=== PATIENT | female | born 1970 | race Caucasian/White ===

== ENCOUNTER 2018-02-03 12:15 | Inpatient (IN) ==
[2018-02-03] MEDS ORDERED: Albuterol 2.5 MG/3 ML NEBULIZER IH ONE (12:34)
[2018-02-03] MEDS ORDERED: CeFAZolin Syr 2,000MG/20 ML 2,000 MG/20 ML SYRINGE IVPB ONE (12:34)
[2018-02-03] MEDS ORDERED: Ringers Solution, Lactated 1,000 ML IVC SCH ×2 (12:45→17:04)
--- NOTE | 2018-02-03 13:00 | Anesthesia Evaluation PreOp ---
Date of Encounter: 02/03/18 Time of Encounter: 12:58 - Past History Planned Operation: R-TKR Cardiac History: Denies any Significant Hx, Other (Thoracic outlet syndrome) Pulmonary History: Smoker, Asthma CLUTCH OPERATOR History: Denies Any Significant HX Other Medical History: Other (Gout) Anesthesia History: No Prior Anesthetic Complications, Past Anesthesia (C- section x3, BTL, Cervical Conization vs. "freezing" off, R- knee scope, R-ACL reconsstruction, L-knee scope) Alcohol Use: none Drug use: none Medications and Allergies Albuterol Sulfate [Proair Hfa] 2 puff IH Q4H PRN 01/12/17 [History] Gabapentin [Neurontin] 300 mg PO TID 01/12/17 [History] hydrOXYzine HCl [Hydroxyzine HCl] 50 mg PO HS 01/12/17 [History] Ibuprofen [Motrin] 600 mg PO Q8HR #20 tab 03/10/17 [Rx] Lidocaine 4% CRM (LMX) [Lmx 4] 1 - 3 gm TD TID 02/03/18 [History] Omeprazole [PriLOSEC] 20 mg PO DAILY 02/03/18 [History] Sertraline [Zoloft] 25 mg PO DAILY 02/03/18 [History] 3 Allergy/AdvReac Type Severity Reaction Status Date / Time acetaminophen [From Vicodin] Allergy Vomiting Verified 05/07/17 12:25 hydrocodone [From Vicodin] Allergy Vomiting Verified 05/07/17 12:25 - Meds/Allergy Pre-op Review Medications Reviewed: Yes Allergies Reviewed: Yes Beta Blockers on Current Med List: No Anesthesia Results - Labs Laboratory Tests 01/27/18 01/27/18 01/27/18 16:07 16:07 16:07 WBC Hgb Hct PT 10.9 INR 1.0 APTT 32.6 Sodium 136 Potassium 3.9 Chloride 105 Carbon Dioxide 25 BUN 8 Est GFR (Non-Af Amer) > 60 Serum , Qual Negative 01/27/18 16:07 WBC 9.2 Hgb 15.6 H Hct 44.9 PT INR APTT Sodium Potassium Chloride Carbon Dioxide BUN Est GFR (Non-Af Amer) Serum , Qual Anesthesia Exam O2 Sat Height 1.7 m Weight 108.863 kg Height: 5'7" Weight: 240# BMI = 38 NPO (# of Hours): MNOc Pain Scale Used: Numeric (1 - 10) - HEENT Pupil (Motor): Pupils equal, EOMI Mallampati: II Teeth: Normal Oral Opening: Greater than 3 - CLUTCH OPERATOR LOC: Oriented CLUTCH OPERATOR Motor: Normal RUE, Normal LUE, Normal RLE, Normal LLE, Normal Face CLUTCH OPERATOR Sensory: Normal: RUE, LUE, RLE, LLE, Face - Cardiac Rhythm: Regular Murmur: None - Pulmonary Breath Sounds: bilateral Clear Respiratory Effort: Symmetrical Anesthesia Assess/Plan ASA Score: 3 (BECKI, Smoker, Obesity) Modified Arnold Scale for Level of Consciousness: Cooperative, oriented, and tranquil Anesthetic Plan: Regional (SAB + Femoral PNB), MAC Monitoring Plan: Standard Monitors Recovery Plan: PACU Anes Supervising Prov Stmt: Pt seen/evaluated, R&B Discussed, questions answered and consent obtained. Jaylen Newton MD
--- NOTE | 2018-02-03 13:20 | History & Physical Report ---
Date of Encounter: 02/03/18 Time of Encounter: 13:20 24 Hour HP Update - Instructions Instructions: If the History and Physical is less than 30 days old and was completed prior to A.M. admission and or procedure and has NOT been updated on calendar day of procedure please complete this update prior to performing procedure. - Update Patient reports changes in Medical Condition: No Changes in examination, assessment, or condition: No Changes in Medication: No Preop tests/diagnostics Reviewed: Yes Surgery Remains Indicated: Yes Consent for Planned Operative Procedure(s) Verified: Yes - Pre-Operative Checklist Preoperative Checklist Indicated: No Prophylactic Antibiotic Ordered: Yes Is VTE Prophylaxis Indicated?: Yes
--- NOTE | 2018-02-03 13:23 | Discharge Summary ---
<Lionel Kendrick Onel - Last Filed: 02/03/18 13:39> Date of Encounter: 02/03/18 - Discharge Diagnosis (1) Asthma Priority: Secondary Status: Chronic Qualifiers: Asthma severity: unspecified severity Asthma persistence: unspecified Asthma complication type: unspecified Qualified Code(s): J45.909 - Unspecified asthma, uncomplicated (2) Tobacco abuse Priority: Secondary Status: Chronic (3) Arthritis of right knee Priority: Primary Status: Chronic (4) Status post total knee replacement, right Priority: Primary Status: Acute - Hospital Course Hospital course: Ms. Hayes is a 47 year old female - Time Spent with Patient Total time spent providing and/or coordinating discharge services: - Discharge Medications Home Medications: Gabapentin [Neurontin] 300 mg PO TID 01/12/17 [History] hydrOXYzine HCl [Hydroxyzine HCl] 100 mg PO HS 01/12/17 [History] Aspirin Enteric Coated [Aspirin EC] 325 mg PO BID #20 tablet. 02/03/18 [Rx] Lidocaine 4% CRM (LMX) [Lmx 4] 1 - 3 gm TD TID 02/03/18 [History] Omeprazole [PriLOSEC] 20 mg PO DAILY 02/03/18 [History] OxyCODONE Immed Rel [Roxicodone 5 MG] 5 mg PO Q4HR PRN 5 Days #20 tablet [Rx] Sertraline [Zoloft] 75 mg PO DAILY 02/03/18 [History] Allergies/Adverse Reactions: 3 Allergy/AdvReac Type Severity Reaction Status Date / Time acetaminophen [From Vicodin] Allergy Vomiting Verified 05/07/17 12:25 hydrocodone [From Vicodin] Allergy Vomiting Verified 05/07/17 12:25 Primary care physician: Wilber Gaines DO - Patient Status Disposition: Transfer SNF Condition: Good - Discharge Instructions Follow Up With: Wilber Solorio DO [Primary Care Provider] - Additional Instructions: Discharge Instructions: Total Knee Replacement Please call [facility] ([phone]), your Primary Care Physician, or report to the Emergency Room if you have any of the following symptoms: Nausea, vomiting, fever greater that 101.5, swelling, chest pain, shortness of breath, increased pain/redness/drainage/odor for your incision site, numbness/ tingling, or any other concerning symptoms. ACTIVITY:Weight-bearing as tolerated. You may progress off support (crutches or walker) as tolerated. Incentive Spirometer 10 times an hour. MEDICATIONS: Upon discharge resume your home medications. Take all the medications as prescribed. Take a stool softener if taking narcotic pain medications. Stool softeners are only effective if you drink enough fluids. Drink 6-8 glass of water or fluids a day, unless this is not allowed for another health problem. Despite using stool softeners, if you haven't had a bowel movement in 3 days, please switch to a gentle laxative. Gentle laxatives are sold over the counter. You should have a bowel movement within 24 hours, if not call the office. You will be discharged from the hospital with a prescription for pain medication. You are encouraged to decrease the use of narcotic pain medication as tolerated. Should you require a refill, please call the office. [facility] prescribes narcotic pain medication for only 4-6 weeks after surgery. If you require pain medication beyond this time period, you may be referred to your Primary Care Physician or to the Pain Clinic for further evaluation. Plan ahead for refills on pain medication as many narcotics either need to be picked up at the office or mailed. It is best to call 48-72 hours in advance of needing a prescription refill so you don't run out of medication. To help control the post-operative pain, you may take NSAIDs (Aleve,Advil, Motrin, Ibuprofen, Naprosyn) or Tylenol as prescribed on the bottle in addition to the pain medication. ANTICOAGULATION (blood thinners): Continue your Aspirin, Lovenox or Coumadin as prescribed to help prevent a blood clot in the leg or in the lungs. As long as your incision remains dry and you tolerate the NSAIDs (Aleve, Advil, Motrin, ibuprofen, naprosyn), it is OK to use the NSAIDS while you are taking your anticoagulation medication. Should your incision start to drain, stop the NSAID and contact our office. Common symptoms of blood clot in the legs include: localized pain, swelling, calf tenderness, redness or discoloration of the skin. Blood clot in the lung symptoms include: shortness of breath, rapid pulse, sweating, and chest pain that worsens with deep breathing, coughing up blood, lightheadedness, feelings of anxiety. If you experience any of these symptoms notify your physician immediately, go to the emergency room, or if having trouble breathing, call 911. WOUND CARE: Leave the dressing on for 7 to 10days. You may change the dressing if it becomes saturated greater than 50%. Do not get the dressing wet at anytime. Wash your hands with antibacterial soap, rinse and dry prior to any wound care. If you have yvonne the visiting nurse or rehab facility can remove the stapes 10-14 days after surgery and place steri-strips across the wound. Leave the steri-strips in place until they fall off on their won. You may let water from the shower run on top of the steri-strips. If you do not have a visiting nurse or rehab facility, you will need to return to the office at 10-14 days for the yvonne to be removed. If you have itching or redness around the dressing call the office. FOLLOW-UP: Please follow up with your surgeon in the orthopedic clinic in 4 weeks from the day of surgery. If you have yvonne that need to be removed, you will need to come back to the office in 10-14 days from the day of surgery. <Debby Jordan - Last Filed: 02/06/18 11:11> Orders not resulted at time of discharge: Pending orders 02/03/18 15:33 Surgical Pathology [PTH] Routine Date of Encounter: 02/06/18 Time of Encounter: 11:09 - Discharge Diagnosis (1) Status post total knee replacement, right Priority: Primary Status: Acute Comments: Opsite dressing and Zipline dressing placed, leave intact until first post- operative visit. If dressing becomes >50% saturated, contact office, remove dressing and place appropriate dressing in its place. Do not allow for dressing to get wet. Yvonne/Zipline dressing in place, plan to remove at POD#14-16. PT: Total Joint Precautions x 6 weeks Apply ICE/cold therapy wrap 3-6x/day for 20 minutes at a time. Encourage ambulation throughout the day and incentive spirometer 10x/hour. Elevate affected extremity above heart as tolerated. Brace: Knee immobilizer at night until first post-operative appointment. (2) Arthritis of right knee Priority: Primary Status: Chronic (3) Asthma Status: Chronic Qualifiers: Asthma severity: unspecified severity Asthma persistence: unspecified Asthma complication type: unspecified Qualified Code(s): J45.909 - Unspecified asthma, uncomplicated (4) Tobacco abuse Status: Chronic - Hospital Course Hospital course: Ms. Hayes is a 47 year old female, s/p TKR. Patient had unevenful post- operative course. Vital Signs Temp Pulse Resp BP Pulse Ox 02/06/18 07:09 98.5 F 74 16 110/72 96 02/06/18 01:17 98.5 F 74 16 152/98 95 02/05/18 18:28 98.2 F 72 18 146/85 97 02/05/18 15:41 98.0 F 75 18 114/75 96 02/05/18 11:54 98.6 F 73 18 153/86 96 Intake and Output 02/05/18 02/06/18 02/06/18 23:59 07:59 15:59 Intake Total 240 / 240 Balance 240 / 240 Intake: Oral 240 / 240 Other: Meal Breakfast Percent of Meal Consumed 50% # Voids 1 1 1 Intake & Output 02/03/18 02/04/18 02/05/18 02/06/18 23:59 23:59 23:59 23:59 Intake Total 50 / 50 200 / 200 200 / 200 240 / 240 Output Total 500 / 500 100 / 100 Balance -450 / -450 100 / 100 200 / 200 240 / 240 Weight 108.863 kg Abnormal Labs 02/03/18 02/04/18 02/05/18 16:17 00:19 00:34 Hgb 11.3 L D Hct 45.2 H 33.8 L Sodium 134 L Glucose 159 H Calcium 02/05/18 00:34 Hgb Hct Sodium Glucose 129 H Calcium 8.5 L - Time Spent with Patient Total time spent providing and/or coordinating discharge services: Date of admission: 02/03/18 17:31 Primary care physician: Wilber Gaines DO Consults: 02/03/18 17:04 Consult to Orthopedic Navigator [CONS] [CONS] Routine Consult to Physical Therapy [CONS] Routine Comment: Evaluate, develop and impliment POC Reason for Consult: post knee surgery Does patient have active BEDREST order?: No Is patient medically & hemodynamically stable?: Yes Consult to Router Machine Operator [CONS] Routine Reason for SW Consult: post op joint replacement RT Post Op Consult [CONS] Routine 02/03/18 17:24 Consult to Nutrition [CONS] Routine Comment: Consulting Provider: NUTRITION Reason for Dietary Consult: MST Score Consult to Pastoral Services [CONS] Routine Comment: Anticipated date of discharge: 02/06/18 - Impressions ITS Impressions Knee X-Ray 02/03/18 13:23 IMPRESSION: Total knee arthropasty without acute hardware complication. D/ / Gabriel Nieves MD / Gabriel Nieves MD Interpreting Provider: Gabriel Nieves MD - Patient Status Functional capacity at discharge: uses cane/walker Overall status at discharge: patient is back to baseline
[2018-02-03] MEDS ORDERED: *HR* FentaNYL (PF) 100 MCG/2 ML VIAL ONE ×2 (13:33→13:40)
[2018-02-03] MEDS ORDERED: *HR* Morphine Sulfate/PF 10 MG/10 ML AMPUL ONE (13:33)
[2018-02-03] MEDS ORDERED: Bupivacaine/Clonidine Syringe 1 EACH SYRINGE ONE (13:34)
[2018-02-03] MEDS ORDERED: ROPIVACAINE HCL/PF 0.5% 30 ML VIAL ONE (13:34)
[2018-02-03] MEDS ORDERED: Tetracaine/PF 20 MG/2 ML AMPUL ONE (13:35)
[2018-02-03] MEDS ORDERED: Acetaminophen IV 1,000 MG/100 ML INFUS..BTL IVPB ONE (13:40)
[2018-02-03] MEDS ORDERED: *HR* Midazolam HCl 2 MG/2 ML VIAL ONE (13:40)
[2018-02-03] MEDS ORDERED: Ethanol\\Acetic Acid\\Na Ace\\Ben 1,000 ML IRRIG.SOLN IR ONE (13:53)
[2018-02-03] MEDS ORDERED: *HR* PHENYLEPHRINE 1,000 MCG/10 ML SYRINGE IVP ONE (14:39)
[2018-02-03] MEDS ORDERED: Propofol 500 MG/50 ML INFUS..BTL ONE (14:40)
[2018-02-03] MEDS ORDERED: Ondansetron 4 MG/2 ML VIAL ONE (14:46)
[2018-02-03] MEDS ORDERED: Dexamethasone 4 MG/ML VIAL ONE (14:46)
--- NOTE | 2018-02-03 14:46 | Anesthesia Procedures ---
Date of Encounter: 02/03/18 Time of Encounter: 14:01 Procedures: Anesthesia - Nerve Block Procedure Date: 02/03/18 Time: 14:01 Allergies/Adv Reactions: VICODIN Pre-op Diagnosis: RIGHT TOTAL KNEE ROBOTIC Surgical Procedure: RIGHT TOTAL KNEE ROBOTIC Checklist: Correct Patient Identifier, Correct procedure, History checked Correct side: Right Blood Thinner: No Monitor Applied: EKG, BP, Pulse Oximetry Supplemental Oxygen via Nasal Cannula (L/min): 2 Sedation: Versed (mg): 2 Sedation: Fentanyl (mcg): 100 Indication: Post Op Analgesia Pre-op Neuro Deficits: No Block Type: Femoral (IPACK ), Other (SPINAL ) Catheter placed: No Sterile Technique: Yes Ultrasound used: Yes Anatomy identified: Yes Visual spread of Local: Yes Neuro Stimulation: Yes Nerve Stimulator Range: 0.2 - 0.4 mA Blood on Needle Aspiration: No Smooth Injection of Local: Yes Pain with Injection of Local: No Prep: Chlorhexadine Needle: 21 x 100 mm Stimuplex Local: Ropivacaine (8MG DECADRON ROPI 0.5% WITH 1% TETRACAINE ), Other (SPINAL : BUPIV 0.5% 2ML WITH 200MCG DURAMORPH ) Volume (cc): 50 Number of Attempts: 1 Complications: None/effective block (1) Vitals: Vital Signs - Last 8 Hours Temp Pulse Resp BP Pulse Ox 02/03/18 14:27 70 16 122/78 98 02/03/18 14:24 67 16 122/75 98 02/03/18 14:21 69 16 131/75 98 02/03/18 14:18 76 16 135/81 96 02/03/18 14:15 72 16 125/68 97 02/03/18 14:12 70 16 128/76 96 02/03/18 14:09 74 16 130/73 97 02/03/18 14:06 90 16 139/113 90 02/03/18 14:03 81 16 124/57 97 02/03/18 14:00 79 16 138/86 96 02/03/18 12:40 98.5 F 78 18 142/78 95 Intake and Output 02/02/18 02/03/18 02/03/18 23:59 07:59 15:59 Other: Weight 108.863 kg Patient Weight 02/03/18 23:59 Weight 108.863 kg Comments: PER COTTRELL REQUEST
[2018-02-03] MEDS ORDERED: Ketorolac 30 MG/ML VIAL ONE (14:48)
--- NOTE | 2018-02-03 14:48 | Anesthesia Procedures ---
<Debbie Bakeree - Last Filed: 02/03/18 14:47> Date of Encounter: 02/03/18 Time of Encounter: 14:01 Procedures: Anesthesia - Epidural/Spinal Patient ID/Chart reviewed: Yes Patient examined: Yes Consent Obtained: Yes Supplemental Oxygen: Nasal Cannula Supplemental Oxygen Rate (L/min): 2 Sedation: Versed (mg): 2 Sedation: Fentanyl (mcg): 100 Site Prep: Aseptic Technique, Sterile prep and drape, Povidone-Iodine 1% Patient position: upright Local Anesthetic: Lidocaine 1% Interspace Used: L4-L5 Blood: No CSF: Yes (SPINAL ) Paresthesia: No Spinal Needle Gauge: 22 Spinal Dose: BUPIV 0.5% 2ml with 200mcg duramorph Vitals + FHT's: Vital Signs - Last 8 Hours Temp Pulse Resp BP Pulse Ox 02/03/18 14:27 70 16 122/78 98 02/03/18 14:24 67 16 122/75 98 02/03/18 14:21 69 16 131/75 98 02/03/18 14:18 76 16 135/81 96 02/03/18 14:15 72 16 125/68 97 02/03/18 14:12 70 16 128/76 96 02/03/18 14:09 74 16 130/73 97 02/03/18 14:06 90 16 139/113 90 02/03/18 14:03 81 16 124/57 97 02/03/18 14:00 79 16 138/86 96 02/03/18 12:40 98.5 F 78 18 142/78 95 Intake and Output 02/02/18 02/03/18 02/03/18 23:59 07:59 15:59 Other: Weight 108.863 kg Patient Weight 02/03/18 23:59 Weight 108.863 kg <Nabeel Swann - Last Filed: 02/03/18 15:12> Date of Encounter: 02/03/18 Procedures: Anesthesia - Epidural/Spinal Site Prep: 0.5% Chlorhexidine/Alcohol Amount of Local Anesthetic used: 2
[2018-02-03] MEDS ORDERED: *HR* Propofol 200 MG/20 ML VIAL IVP ONE (15:20)
[2018-02-03] MEDS ORDERED: *HR* Promethazine 25 MG/ML VIAL IVP PRN (15:41)
--- NOTE | 2018-02-03 15:57 | Orthopedic Operative Note ---
Date of procedure: 02/03/18 Pre-op diagnosis: right knee arthritis Post-op diagnosis: same Procedure: Procedure: Right robotic-assisted Total knee replacement Estimated blood loss: 200 cc Hardware: Metal and polyethylene replacement. [place] Femur: 4 Tibia: 4 PS insert: 16 Patella: 36 Exam Under anesthesia: 6 degree hyperextension 0 degree varus valgus as calculated by the robot full flexion and no instability Procedural Notes: Grade 4 arthritic changes all 3 compartments Operative procedure: The patient was brought to the operating room and placed on the operating room table. After general anesthesia was administered the operative knee was examined. Findings were noted in the exam under anesthesia. The operative extremity was prepped and draped in sterile surgical fashion. The patient received IV antibiotics prior to skin incision. A standard midline incision was made centered over the patella. The incision was made through the skin and subcutaneous tissue. A medial parapatellar tendon approach was performed. Care was taken to preserve tissue along the medial aspect of the patella. And to protect the patella tendon. The deep MCL was released off the medial tibia. The infra patella fat pad was excised. The patella was everted and cut was made at the level of the insertion of the quadriceps and patella tendon. The patella was sized to 36 the guide was seated and the lug holes are drilled. Knee was brought into flexion. Patient noted to have Steinmann pins were placed in the tibia and the femur for the tibial and femoral arrays respectively. Checkpoints were also placed in the tibia and the femur for calculation purposes. The knee including the femur and the tibial registered. Osteophytes, ACL and PCL were excised at this point. Extension and flexion were assessed with a valgus stress components were adjusted on the computer to balance the knee. Femoral cuts were made first with robotic assistance, these included the anterior cut posterior cuts chamfer cuts. Tibial cut was then performed with robotic assistance as well. Bone fragments were removed, as well as the medial and lateral meniscus. The size 4 femoral guide was seated box cut was made lug holes are drilled. The size 4 tibial tray was seated and prepared with the fin cutter. Trial reduction with the 16 TS Tiff revealed extension of 0 degree and 0 degree varus valgus full flexion. No varus valgus instability. Trial reduction revealed excellent patella tracking. All trial components were removed all bony surfaces were irrigated. The Tibia was seated followed by the femur, The Tiff size 16 was seated and secured patella. Patient had similar findings for motion and stability. The knee was then irrigated out with 2 L of pulse irrigation. The extensor mechanism was closed with #2 FiberWire suture and #2 PDS suture. The subcutaneous tissue was then irrigated and closed deep with #1 PDS suture superficially with 0 PDS suture and skin was closed with irina zip tie The patient was then placed in a sterile dressing and a postoperative brace extubated and transferred to recovery room in stable condition. Anesthesia: spinal Surgeon: Lionel Kendrick Was there an wardrobe assistant present: No Estimated blood loss (cc): 200 Condition: stable Disposition: PACU
[2018-02-03] MEDS ORDERED: Temazepam 15 MG CAPSULE PO PRN (17:04)
[2018-02-03] MEDS ORDERED: Sennosides 8.6 MG TABLET PO PRN (17:04)
[2018-02-03] MEDS ORDERED: *HR* OxyCODONE/APAP 5/325 TABLET PO PRN (17:04)
[2018-02-03] MEDS ORDERED: Naloxone 0.4 MG/ML INJ IVP PRN (17:04)
[2018-02-03] MEDS ORDERED: Ondansetron 4 MG/2 ML VIAL IVP PRN (17:04)
[2018-02-03] MEDS ORDERED: MOM Conc 10 ML UD.LIQ PO PRN (17:04)
[2018-02-03] MEDS ORDERED: traMADol 50 MG TABLET PO PRN (17:04)
[2018-02-03 17:52] LABS: Hematocrit 45.2 % (35.3-44.9); Hemoglobin 15.2 g/dL (11.5-15.4)
[2018-02-03] MEDS ORDERED: *HR* Enoxaparin 30 MG/0.3 ML SYRINGE SQ SCH (18:00)
--- NOTE | 2018-02-03 18:23 | Anesthesia Evaluation Post Op ---
Date of Encounter: 02/03/18 Time of Encounter: 16:40 - Vital Signs Vital Signs: Vital Signs/O2 Sat/Glucose, Most Current Temp Pulse Resp BP Pulse Ox 02/03/18 16:50 97.9 F 56 16 121/71 96 02/03/18 16:35 97.2 F L 64 16 135/72 97 02/03/18 16:25 97.2 F L 61 16 133/75 98 02/03/18 16:15 54 14 124/68 97 02/03/18 16:05 60 16 115/68 97 02/03/18 15:55 97.2 F L 70 16 113/70 98 02/03/18 14:27 70 16 122/78 98 02/03/18 14:24 67 16 122/75 98 - Lungs Lungs: Clear Ascult./Percussion - Airway Airway: Non-obstructed - Cardiovascular Regular Rate - Mental Status Mental Status: Alert & Oriented, Answers Appropriately - Pain Pain Scale: 0 Pain Scale used: Numeric (1 - 10) - Nausea Vomiting Nausea Vomiting: Not Present - Hydration Hydration: Tolerates oral liquids, Has not voided - Discharge PostOp Status: Transfer Patient to floor Anes Supervising Prov Stmt: Pt VSS And has met criteria for discharge to floor. - MD Aman
[2018-02-03] MEDS: Gabapentin 300 MG CAPSULE PO SCH ×2 (19:31→20:00)
--- NOTE | 2018-02-03 19:37 | Physician Discharge Referral ---
<Christiana Scruggs - Last Filed: 02/03/18 19:36> Home Health/Hosp Referral Info Transfer to: Home Health Attending Provider: farideh - Diagnosis (1) Status post total knee replacement, right Priority: Primary Status: Acute (2) Arthritis of right knee Priority: Secondary Status: Chronic (3) Asthma Priority: Secondary Status: Chronic (4) Tobacco abuse Priority: Secondary Status: Chronic - Respiratory Orders Smoking Cessation: Smoking cessation has been advised. For more information, call the [place] Tobacco Quit Line at 6-372-YDMK-NOW. - Diet/Nutrition Diet/Nutrition Orders: Regular - Activity Activity Orders: Ambulate, Chair - Services Needed Following services are medically necessary services: Physical Therapy, Occupational Therapy Home Care Orders: Opsite dressing, leave intact until first post-operative visit. If dressing becomes >50% saturated, contact office, remove dressing and place appropriate dressing in its place. Do not allow for dressing to get wet. Zipline/Yvonne in place, plan to remove at post-operative day #14-16. Total Joint Precautions x 6 weeks Apply cold therapy wrap 3-6x/day for 20 minutes at a time. Encourage ambulation throughout the day Use Incentive spirometer 10x/hour. Elevate affected extremity above heart as tolerated. Brace: Wear knee immobilizer at night x 2 weeks. - Transfer Medications Home Medications: Gabapentin [Neurontin] 300 mg PO TID 01/12/17 [History] hydrOXYzine HCl [Hydroxyzine HCl] 100 mg PO HS 01/12/17 [History] Aspirin Enteric Coated [Aspirin EC] 325 mg PO BID #20 tablet. 02/03/18 [Rx] Lidocaine 4% CRM (LMX) [Lmx 4] 1 - 3 gm TD TID 02/03/18 [History] Omeprazole [PriLOSEC] 20 mg PO DAILY 02/03/18 [History] OxyCODONE Immed Rel [Roxicodone 5 MG] 5 mg PO Q4HR PRN 5 Days #20 tablet [Rx] Sertraline [Zoloft] 75 mg PO DAILY 02/03/18 [History] Allergies/Adverse Reactions: 3 Allergy/AdvReac Type Severity Reaction Status Date / Time acetaminophen [From Vicodin] Allergy Vomiting Verified 05/07/17 12:25 hydrocodone [From Vicodin] Allergy Vomiting Verified 05/07/17 12:25 Certification: Further, I certify that my clinical findings support that this patient is homebound (i.e. absences from home require considerable and taxing effort and are for medical reasons or restorationist services or infrequently or short duration when for other reasons) because: Homebound Reason: Post-surgery restriction and or conditions limit ability to leave home Attestation: My signature below is to certify that this patient is under my care and that I, or nurse practitioner, or a physician assistant store manager trainee working with me, has a face-to- face encounter with this patient. <Lionel Kendrick - Last Filed: 02/06/18 06:49> - Diagnosis (1) Asthma Status: Chronic (2) Tobacco abuse Status: Chronic (3) Arthritis of right knee Status: Chronic (4) Status post total knee replacement, right Status: Acute - Respiratory Orders Smoking Cessation: Smoking cessation has been advised. For more information, call the [place] Tobacco Quit Line at 3-898-INFN-NOW. Certification: Further, I certify that my clinical findings support that this patient is homebound (i.e. absences from home require considerable and taxing effort and are for medical reasons or restorationist services or infrequently or short duration when for other reasons) because: Attestation: My signature below is to certify that this patient is under my care and that I, or nurse practitioner, or a physician's assistant store manager trainee working with me, has a face-to -face encounter with this patient.
--- NOTE | 2018-02-03 19:38 | Physician Discharge Referral ---
<Christiana Scruggs - Last Filed: 02/03/18 19:37> ExtendedCare Referral Info Transfer To: [facility] Provider in Charge: Aroldo York Diagnosis (1) Status post total knee replacement, right Priority: Primary Status: Acute (2) Arthritis of right knee Priority: Secondary Status: Chronic (3) Asthma Priority: Secondary Status: Chronic (4) Tobacco abuse Priority: Secondary Status: Chronic Expected Duration of Placement: <30 days Prognosis: Good Aware of Diagnosis: Patient Aware of Prognosis: Patient - Transfer Medications Home Medications: Gabapentin [Neurontin] 300 mg PO TID 01/12/17 [History] hydrOXYzine HCl [Hydroxyzine HCl] 100 mg PO HS 01/12/17 [History] Aspirin Enteric Coated [Aspirin EC] 325 mg PO BID #20 tablet. 02/03/18 [Rx] Lidocaine 4% CRM (LMX) [Lmx 4] 1 - 3 gm TD TID 02/03/18 [History] Omeprazole [PriLOSEC] 20 mg PO DAILY 02/03/18 [History] OxyCODONE Immed Rel [Roxicodone 5 MG] 5 mg PO Q4HR PRN 5 Days #20 tablet [Rx] Sertraline [Zoloft] 75 mg PO DAILY 02/03/18 [History] Allergies/Adverse Reactions: 3 Allergy/AdvReac Type Severity Reaction Status Date / Time acetaminophen [From Vicodin] Allergy Vomiting Verified 05/07/17 12:25 hydrocodone [From Vicodin] Allergy Vomiting Verified 05/07/17 12:25 - Respiratory Orders Smoking Cessation: Smoking cessation has been advised. For more information, call the [place] Tobacco Quit Line at 4-533-APYF-NOW. - Ancillary Orders May use pressure relief devices daily prn, May go on MADDIE w/family/respon libertarian w /meds at nurse discretion PRN, May consult with Dentist, Visual Merchandising Specialist, Ergonomics Consultant PRN - Mobility Orders Chair, Ambulate - Rehabiliation Orders Rehab Potential: Good Rehab Orders: Evaluation for Physical Therapy, Evaluation for Occupational Therapy - Treatments List/Other: Opsite dressing, leave intact until first post-operative visit. If dressing becomes >50% saturated, contact office, remove dressing and place appropriate dressing in its place. Do not allow for dressing to get wet. Zipline/Yvonne in place, plan to remove at post-operative day #14-16. Total Joint Precautions x 6 weeks Apply cold therapy wrap 3-6x/day for 20 minutes at a time. Encourage ambulation throughout the day Use Incentive spirometer 10x/hour. Elevate affected extremity above heart as tolerated. Brace: Wear knee immobilizer at night x 2 weeks. - Diet Orders Regular CERTIFICATION: I certify that the transfer of the above named patient to an Extended Care Facility is necessary for the continuing treatment of the diagnosis listed. The above information is true and accurate reflection of patient's current condition. Confidential - Redisclosure prohibited without a patient's written consent. <Lionel Kendrick - Last Filed: 02/06/18 06:49> - Diagnosis (1) Asthma Status: Chronic (2) Tobacco abuse Status: Chronic (3) Arthritis of right knee Status: Chronic (4) Status post total knee replacement, right Status: Acute - Respiratory Orders Smoking Cessation: Smoking cessation has been advised. For more information, call the [place] Tobacco Quit Line at 7-373-VXSL-NOW. CERTIFICATION: I certify that the transfer of the above named patient to an Extended Care Facility is necessary for the continuing treatment of the diagnosis listed. The above information is true and accurate reflection of patient's current condition. Confidential - Redisclosure prohibited without a patient's written consent.
[2018-02-03] MEDS: *HR* Enoxaparin 30 MG/0.3 ML SYRINGE SQ SCH (20:01)
[2018-02-03] MEDS: hydrOXYzine pamoate 25 MG CAPSULE PO SCH (20:01)
[2018-02-04 00:55] LABS: Hemoglobin 14.5 g/dL (11.5-15.4)
[2018-02-04 01:13] LABS: BUN/Creatinine Ratio 16 (6-26); Blood Urea Nitrogen 12 mg/dL (6-20); Calcium 8.9 mg/dL (8.6-10.3); Carbon Dioxide 24 mEq/L (23-29); Chloride 104 mEq/L (98-107); Glucose 159 mg/dL (70-105); Osmolality,Calculated 281 (280-300); Potassium 4.6 mEq/L (3.5-5.1); Sodium 134 mEq/L (136-145); eGFR For Non-African Americans > 60 (> 60)
[2018-02-04] MEDS: *HR* OxyCODONE Immed Rel 5 MG TABLET PO PRN ×4 (03:16→21:39)
[2018-02-04] MEDS: *HR* Enoxaparin 30 MG/0.3 ML SYRINGE SQ SCH ×2 (05:39→17:18)
[2018-02-04] MEDS: Gabapentin 300 MG CAPSULE PO SCH ×3 (07:27→21:22)
--- NOTE | 2018-02-04 09:58 | Orthopedics Progress Note ---
Date of Encounter: 02/04/18 Time of Encounter: 09:56 Subjective Interval history: S: Resting in bed comfortably No new complaints O: Afebrile and vital signs are stable Right knee dressing is clean, dry, and intact Neurovascularly intact distally A: Right total knee arthroplasty P: Resume postoperative care Anticipate discharge tomorrow Objective Vital signs: Vital Signs Temp Pulse Resp BP Pulse Ox 02/04/18 07:32 97 02/04/18 06:58 97.9 F 58 16 113/75 97 02/04/18 04:06 97.5 F L 50 18 108/71 96 02/03/18 22:40 98.1 F 72 16 135/62 97 02/03/18 20:03 97.9 F 64 16 103/68 95 02/03/18 18:55 97.8 F 65 16 105/67 99 02/03/18 18:20 98.3 F 64 16 119/72 95 02/03/18 17:20 97.7 F 59 16 136/82 97 02/03/18 16:50 97.9 F 56 16 121/71 96 02/03/18 16:35 97.2 F L 64 16 135/72 97 02/03/18 16:25 97.2 F L 61 16 133/75 98 02/03/18 16:15 54 14 124/68 97 02/03/18 16:05 60 16 115/68 97 02/03/18 15:55 97.2 F L 70 16 113/70 98 02/03/18 14:27 70 16 122/78 98 02/03/18 14:24 67 16 122/75 98 02/03/18 14:21 69 16 131/75 98 02/03/18 14:18 76 16 135/81 96 02/03/18 14:15 72 16 125/68 97 02/03/18 14:12 70 16 128/76 96 02/03/18 14:09 74 16 130/73 97 02/03/18 14:06 90 16 139/113 90 02/03/18 14:03 81 16 124/57 97 02/03/18 14:00 79 16 138/86 96 02/03/18 12:40 98.5 F 78 18 142/78 95 Intake and Output 02/03/18 02/04/18 02/04/18 23:59 07:59 15:59 Intake Total 50 / 50 200 / 200 Output Total 500 / 500 100 / 100 Balance -450 / -450 100 / 100 Intake: IV Fluids 100 / 100 Ancef 2,000 MG In 0.9 % Sodium 100 / 100 Chloride 100 ML @ 200 mls/hr IVPB Q8H [facility] Rx#:[id number] Oral 50 / 50 100 / 100 Output: Urine 300 / 300 100 / 100 Estimated Blood Loss 200 / 200 - Labs CBC & BMP: 02/04/18 00:19 02/04/18 00:19 Labs: Abnormal lab results Sodium 134 mEq/L (136-145) L 02/04/18 00:19 Glucose 159 mg/dL (70-105) H 02/04/18 00:19 - VTE Documentation of Mechanical Device: Venous foot pump, device Consult Discharge Plan - Plan Referrals: Wilber Solorio DO [Primary Care Provider] -
[2018-02-04] MEDS: hydrOXYzine pamoate 25 MG CAPSULE PO SCH (21:23)
[2018-02-05 01:00] LABS: Hematocrit 33.8 % (35.3-44.9)
[2018-02-05 01:02] LABS: Hemoglobin 11.3 g/dL (11.5-15.4)
[2018-02-05 01:19] LABS: BUN/Creatinine Ratio 21 (6-26); Blood Urea Nitrogen 14 mg/dL (6-20); Calcium 8.5 mg/dL (8.6-10.3); Carbon Dioxide 27 mEq/L (23-29); Chloride 106 mEq/L (98-107); Glucose 129 mg/dL (70-105); Osmolality,Calculated 288 (280-300); Potassium 4.5 mEq/L (3.5-5.1); Sodium 138 mEq/L (136-145); eGFR For Non-African Americans > 60 (> 60)
[2018-02-05] MEDS: *HR* OxyCODONE Immed Rel 5 MG TABLET PO PRN ×2 (03:38→08:46)
[2018-02-05] MEDS ORDERED: *HR* OxyCODONE Immed Rel 5 MG TABLET PO ONE (05:39)
[2018-02-05] MEDS: *HR* Enoxaparin 30 MG/0.3 ML SYRINGE SQ SCH ×2 (05:47→17:15)
[2018-02-05] MEDS: Gabapentin 300 MG CAPSULE PO SCH ×3 (08:46→20:36)
--- NOTE | 2018-02-05 09:40 | Orthopedics Progress Note ---
Date of Encounter: 02/05/18 Time of Encounter: 09:37 Subjective Interval history: S: Pain control issues last night. No new complaints otherwise O: Afebrile and vital signs are stable Right knee dressing is clean, dry, and intact Neurovascularly intact distally A: Right total knee arthroplasty P: Resume postoperative care Switch her from Percocet 5 mg to Percocet 10 mg Anticipate discharge tomorrow Objective Vital signs: Vital Signs Temp Pulse Resp BP Pulse Ox 02/05/18 06:57 98.0 F 69 18 147/96 97 02/04/18 23:35 97.9 F 77 18 108/72 97 02/04/18 20:23 97.9 F 68 18 110/75 98 02/04/18 15:20 97.9 F 58 16 124/85 98 02/04/18 11:06 97.8 F 59 16 107/67 95 Intake and Output 02/04/18 02/05/18 02/05/18 23:59 07:59 15:59 Intake Total 200 / 200 Balance 200 / 200 Intake: Oral 200 / 200 Other: # Voids 1 - Labs CBC & BMP: 02/05/18 00:34 02/05/18 00:34 Labs: Abnormal lab results Hgb 11.3 g/dL (11.5-15.4) L D 02/05/18 00:34 Hct 33.8 % (35.3-44.9) L 02/05/18 00:34 Glucose 129 mg/dL (70-105) H 02/05/18 00:34 Calcium 8.5 mg/dL (8.6-10.3) L 02/05/18 00:34 - VTE Documentation of Mechanical Device: Venous foot pump, device Consult Discharge Plan - Plan Referrals: Wilber Solorio DO [Primary Care Provider] -
[2018-02-05] MEDS: *HR* OxyCODONE/APAP 10/325 TABLET PO PRN ×3 (12:46→21:16)
[2018-02-05] MEDS ORDERED: tiZANidine 4 MG TABLET PO ONE (12:59)
[2018-02-05] MEDS: hydrOXYzine pamoate 25 MG CAPSULE PO SCH (20:36)
[2018-02-06] MEDS: *HR* OxyCODONE/APAP 10/325 TABLET PO PRN ×3 (01:16→09:23)
[2018-02-06] MEDS: *HR* Enoxaparin 30 MG/0.3 ML SYRINGE SQ SCH (05:28)
--- NOTE | 2018-02-06 06:50 | Orthopedics Progress Note ---
Date of Encounter: 02/06/18 Time of Encounter: 06:49 - Assessment and Plan (1) Asthma Current Visit: Yes Status: Chronic Qualifiers: Asthma severity: unspecified severity Asthma persistence: unspecified Asthma complication type: unspecified Qualified Code(s): J45.909 - Unspecified asthma, uncomplicated (2) Tobacco abuse Current Visit: Yes Status: Chronic (3) Arthritis of right knee Current Visit: Yes Status: Chronic (4) Status post total knee replacement, right Current Visit: Yes Status: Acute Subjective Interval history: Patient was seen this morning doing well without complaints. Afebrile vital signs stable. Operative extremity: Neurovascularly intact Dressing clean dry and intact Calves nontender Assessment and plan: Continue with postoperative care Discharged today Objective Vital signs: Vital Signs Temp Pulse Resp BP Pulse Ox 02/06/18 01:17 98.5 F 74 16 152/98 95 02/05/18 18:28 98.2 F 72 18 146/85 97 02/05/18 15:41 98.0 F 75 18 114/75 96 02/05/18 11:54 98.6 F 73 18 153/86 96 02/05/18 06:57 98.0 F 69 18 147/96 97 Intake and Output 02/05/18 02/05/18 02/06/18 15:59 23:59 07:59 Other: # Voids 3 1 1 - Labs CBC & BMP: 02/05/18 00:34 02/05/18 00:34 Labs: Abnormal lab results Hgb 11.3 g/dL (11.5-15.4) L D 02/05/18 00:34 Hct 33.8 % (35.3-44.9) L 02/05/18 00:34 Glucose 129 mg/dL (70-105) H 02/05/18 00:34 Calcium 8.5 mg/dL (8.6-10.3) L 02/05/18 00:34 - VTE Documentation of Mechanical Device: Venous foot pump, device Consult Discharge Plan - Plan Referrals: Wilber Solorio DO [Primary Care Provider] -
[2018-02-06] MEDS: Gabapentin 300 MG CAPSULE PO SCH (09:23)
[2018-02-06 11:28] VITALS: BP 117/76
== END 2018-02-06 13:27 | DRG 302 ==
LOC: SAMDAY 12:15 → 3NENU 17:31
PROVIDERS: ADMIT Orthopaedic Surgery; ATTEND Orthopaedic Surgery

== ENCOUNTER 2022-03-03 09:42 | Inpatient (IN) ==
[2022-03-03] MEDS ORDERED: CeFAZolin Syr 2,000MG/20 ML 2,000 MG/20 ML SYRINGE IVPB ONE (10:02)
[2022-03-03] MEDS ORDERED: Ringers Solution, Lactated 1,000 ML IVC SCH (10:15)
[2022-03-03] MEDS ORDERED: Povidone-Iodine 45 ML, Sodium Chloride IRRigation 1,000 ML IR ONE (10:25)
[2022-03-03] MEDS ORDERED: TOTAL JOINT MIXTURE (100ML) INTRAART ONE (10:25)
[2022-03-03] MEDS ORDERED: Famotidine 20 MG TABLET PO ONE (11:00)
[2022-03-03] MEDS ORDERED: Celecoxib 200 MG CAPSULE PO ONE (11:00)
[2022-03-03] MEDS ORDERED: Acetaminophen IV 1,000 MG/100 ML BAG IVPB ONE (11:00)
[2022-03-03] MEDS ORDERED: Ipratropium Neb 0.5 MG NEBULIZER IH PRN (11:16)
[2022-03-03] MEDS ORDERED: *HR* Labetalol 20 MG/4 ML SYRINGE IVP PRN (11:16)
[2022-03-03] MEDS ORDERED: *HR* HYDROmorphone PF 0.5 MG/0.5 ML SYRINGE IVP PRN (11:16)
[2022-03-03] MEDS ORDERED: Ondansetron 4 MG/2 ML VIAL IVP PRN ×2 (11:16→18:51)
[2022-03-03] MEDS ORDERED: Albuterol 2.5 MG/3 ML NEBULIZER IH PRN (11:16)
[2022-03-03] MEDS ORDERED: *HR* OxyCODONE/APAP 5/325 TABLET PO PRN (11:16)
[2022-03-03] MEDS ORDERED: Ketorolac 30 MG/ML VIAL IVP PRN ×2 (11:16→17:30)
[2022-03-03] MEDS ORDERED: Gentamicin 380 MG in 0.9 % Sodium Chloride 100 ML IVPB ONE (12:15)
[2022-03-03] MEDS ORDERED: *HR* FentaNYL (PF) 100 MCG/2 ML VIAL ONE ×2 (13:11→16:11)
[2022-03-03] MEDS ORDERED: *HR* Midazolam HCl 2 MG/2 ML VIAL ONE (13:12)
[2022-03-03] MEDS ORDERED: Ropivacaine/PF 0.5% 30 ML VIAL ONE (13:13)
[2022-03-03] MEDS ORDERED: Ondansetron 4 MG/2 ML VIAL ONE (13:19)
[2022-03-03] MEDS ORDERED: Lidocaine HCL 4 ML Topical Solution (Laryng-O-Jet Kit Sterile Pak) TP ONE (13:19)
[2022-03-03] MEDS ORDERED: Lidocaine -MPF 2% 2 ML VIAL ONE (13:19)
[2022-03-03] MEDS ORDERED: *HR* Propofol 200 MG/20 ML VIAL IVP ONE (13:19)
[2022-03-03] MEDS ORDERED: *HR* Succinylcholine 200 MG/10 ML VIAL IVP ONE (13:19)
[2022-03-03] MEDS ORDERED: Lidocaine -MPF 4% 5 ML AMPUL ONE (13:19)
[2022-03-03] MEDS ORDERED: Ethanol\\Acetic Acid\\Na Ace\\Ben 1,000 ML IRRIG.SOLN IR ONE (13:51)
[2022-03-03] MEDS ORDERED: Vancomycin 1,000 MG VIAL ONE (13:52)
[2022-03-03] MEDS ORDERED: Tobramycin Sulf (Sterile) 1.2 GM VIAL ONE (13:52)
[2022-03-03] MEDS ORDERED: Tranexamic Acid 1,000 MG/10 ML VIAL ONE (14:41)
[2022-03-03] MEDS: *HR* FentaNYL (PF) 100 MCG/2 ML VIAL IVP PRN ×4 (17:06→17:30)
[2022-03-03] MEDS ORDERED: Naloxone 0.4 MG/ML INJ IVP PRN (18:51)
[2022-03-03] MEDS ORDERED: MOM Conc 10 ML UD.LIQ PO PRN (18:51)
[2022-03-03] MEDS ORDERED: *HR* Promethazine 25 MG/ML VIAL IM PRN (18:51)
[2022-03-03] MEDS ORDERED: Sennosides 8.6 MG TABLET PO PRN (18:51)
[2022-03-03] MEDS: hydrOXYzine pamoate 25 MG CAPSULE PO SCH (22:04)
[2022-03-03] MEDS: Ketorolac 30 MG/ML VIAL IVP SCH (22:05)
[2022-03-03] MEDS: Topiramate 100 MG TABLET PO SCH (22:05)
[2022-03-03] MEDS: Gabapentin 300 MG CAPSULE PO SCH (22:05)
[2022-03-03] MEDS: *HR* OxyCODONE Immed Rel 5 MG TABLET PO PRN (22:05)
[2022-03-04] MEDS: Ketorolac 30 MG/ML VIAL IVP SCH ×5 (00:38→23:36)
[2022-03-04] MEDS: CeFAZolin 2 GM/120 ML BAG IVPB SCH ×4 (00:38→23:30)
[2022-03-04] MEDS: *HR* OxyCODONE Immed Rel 5 MG TABLET PO PRN ×5 (02:07→21:25)
[2022-03-04 08:25] LABS: Basophils % 0.1 %; Hematocrit 38.6 % (35.3-44.9); Hemoglobin 12.8 g/dL (11.5-15.4); Immature Granulocytes % 0.4 % (0-4); Lymphocytes # 1.7 K/mcL (0.6-4.6); Lymphocytes % 12.1 %; Mean Corpuscular HGB Conc 33.2 g/dL (31.6-35.5); Mean Corpuscular Hemoglobin 29.4 pg (28.0-33.3); Mean Corpuscular Volume 88.7 fL (83.0-100.0); Mean Platelet Volume 11.8 fL (9.4-12.4); Monocytes # 0.8 K/mcL (0.0-1.3); Monocytes % 5.6 %; Neutrophils # 11.2 K/mcL (1.6-8.9); Platelet Count 239 K/mcL (140-400); Red Blood Count 4.35 M/mcL (3.82-4.97); Red Cell Distribution Width 13.4 % (11.5-14.5); Segmented Neutrophils % 81.8 %; White Blood Count 13.7 K/mcL (4.3-11.1)
[2022-03-04 08:41] LABS: Calcium 8.8 mg/dL (8.6-10.3); Potassium 4.1 mEq/L (3.5-5.1)
[2022-03-04] MEDS: Multivit/Ca/Min/Fe/FA 1 TAB TABLET PO SCH (10:48)
[2022-03-04] MEDS: Topiramate 100 MG TABLET PO SCH ×2 (10:48→21:03)
[2022-03-04] MEDS: Ascorbic Acid 500 MG TABLET PO SCH ×2 (10:49→18:39)
[2022-03-04] MEDS: Gabapentin 300 MG CAPSULE PO SCH ×3 (10:49→21:04)
[2022-03-04] MEDS: hydrOXYzine pamoate 25 MG CAPSULE PO SCH (21:03)
[2022-03-04] MEDS: Aspirin Enteric Coated 81 MG Tablet PO SCH (21:05)
[2022-03-05] MEDS: *HR* OxyCODONE Immed Rel 5 MG TABLET PO PRN ×5 (03:26→23:07)
[2022-03-05] MEDS: Ketorolac 30 MG/ML VIAL IVP SCH ×4 (05:34→23:14)
[2022-03-05 07:05] LABS: Basophils # 0.1 K/mcL (0.0-0.2); Basophils % 0.5 %; Eosinophils # 0.1 K/mcL (0.0-0.6); Eosinophils % 0.5 %; Hematocrit 37.7 % (35.3-44.9); Hemoglobin 12.4 g/dL (11.5-15.4); Immature Granulocytes % 0.3 % (0-4); Lymphocytes # 5.5 K/mcL (0.6-4.6); Lymphocytes % 40.3 %; Mean Corpuscular HGB Conc 32.9 g/dL (31.6-35.5); Mean Corpuscular Hemoglobin 29.7 pg (28.0-33.3); Mean Corpuscular Volume 90.4 fL (83.0-100.0); Mean Platelet Volume 11.8 fL (9.4-12.4); Monocytes % 7.5 %; Platelet Count 210 K/mcL (140-400); Red Blood Count 4.17 M/mcL (3.82-4.97); Red Cell Distribution Width 13.8 % (11.5-14.5); Segmented Neutrophils % 50.9 %; White Blood Count 13.7 K/mcL (4.3-11.1)
[2022-03-05 08:09] LABS: Potassium 3.6 mEq/L (3.5-5.1)
[2022-03-05] MEDS: Aspirin Enteric Coated 81 MG Tablet PO SCH (08:16)
[2022-03-05] MEDS: Ascorbic Acid 500 MG TABLET PO SCH ×2 (08:16→15:34)
[2022-03-05] MEDS: Topiramate 100 MG TABLET PO SCH ×2 (08:16→20:59)
[2022-03-05] MEDS: Multivit/Ca/Min/Fe/FA 1 TAB TABLET PO SCH (08:16)
[2022-03-05] MEDS: Gabapentin 300 MG CAPSULE PO SCH ×3 (08:16→20:59)
[2022-03-05] MEDS: CeFAZolin 2 GM/120 ML BAG IVPB SCH ×3 (11:43→23:07)
[2022-03-05] MEDS: Ringers Solution, Lactated 1,000 ML IVC SCH ×2 (19:50→23:14)
[2022-03-05] MEDS: hydrOXYzine pamoate 25 MG CAPSULE PO SCH (20:59)
[2022-03-06] MEDS: *HR* OxyCODONE Immed Rel 5 MG TABLET PO PRN ×3 (04:59→18:11)
[2022-03-06] MEDS: Ketorolac 30 MG/ML VIAL IVP SCH ×3 (04:59→17:29)
[2022-03-06] MEDS: Multivit/Ca/Min/Fe/FA 1 TAB TABLET PO SCH (08:38)
[2022-03-06] MEDS: Aspirin Enteric Coated 81 MG Tablet PO SCH (08:38)
[2022-03-06] MEDS: Topiramate 100 MG TABLET PO SCH (08:38)
[2022-03-06] MEDS: Ascorbic Acid 500 MG TABLET PO SCH ×2 (08:38→17:29)
[2022-03-06] MEDS: Gabapentin 300 MG CAPSULE PO SCH ×2 (08:39→17:34)
[2022-03-06] MEDS: CeFAZolin 2 GM/120 ML BAG IVPB SCH ×2 (08:46→17:31)
[2022-03-06 16:20] VITALS: BP 116/71; PULSE 63; TEMP 98; O2SAT 99
[2022-03-06] MEDS ORDERED: Flu Vac QV 22-23 (6MOS UP)/PF 0.5 ML SYRINGE IM ONE (17:15)
== END 2022-03-06 18:13 | disposition home health service (06) | DRG 467 ==
LOC: SDCAOSI 09:42 → 1NENUOBS 11:51 → 4WAOSI 19:00
PROVIDERS: ADMIT Orthopaedic Surgery; ATTEND Orthopaedic Surgery